=== PATIENT | male | born 1960 | race Caucasian/White ===

== ENCOUNTER → 2017-09-07 11:20 | Outpatient (CLI) | payer MEDICARE ==
[~2017-09-07] VITALS: Ht 182.9 cm; Wt 98.6 kg
--- NOTE | ~2017-09-07 | OP ---
PATIENT NAME: VICKIE DE ANDA MEDICAL RECORD: [id number] :62 LOCATION:D.CAT ADMISSION DATE: SURGEON: CHRISSY LUCAS MD DATE OF OPERATION: 09/07/2017 PROCEDURE: Left heart catheterization, right femoral approach. CATHETERS: A 5-Eritrean sheath, 5/4 left and right Vazquez, 5/4 pig. The procedure was well tolerated. The patient returned to kelly. Sheath removed. ExoSeal device placed. FINDINGS: Left ventriculography in 30-degree MAE view shows anterior apical hypokinesis. Overall, function reduced 30 to 40%. CORONARY ANATOMY: LEFT MAIN: Left main is free of disease. LAD: At the area of previous stenting in the diagonal has about an 80% stenosis. CIRCUMFLEX: Free of disease. RIGHT CORONARY ARTERY: Free of disease. PLAN: Intervention LAD momentarily. DESCRIPTION OF PROCEDURE: A 5-Eritrean sheath was exchanged for a 6-Eritrean sheath. We attempted to place a balloon down. However, secondary to stent struts protruding from the diagonal where we were forced to place a abner wire down. I then placed a balloon down, a 3.0 x 12 Routt, and inflated it to 14 atmospheres to crush the previously placed stent, but into the diagonal to provide adequate lumen for stenting of the LAD. The stent deployed was a 3.5 x 12 Integrity nondrug-eluting stent up to 14 atmospheres, shows excellent resolution of 80% stenosis, no significant residual. SAMARIA flow was 3 throughout the procedure. The patient was previously on Plavix, so heparin was used during the case. Sheath was closed with ExoSeal device. TRANSINT:[id number] Voice Confirmation ID: [id number] DOCUMENT ID: [id number] CHRISSY LUCAS MD at 0816 CC: [id number] DICTATION DATE: 09/07/17 1434 COLLAR TURNER OPERATOR: 09/07/17 1513 DEP CLI 09/07/[address] [place] [address]
--- NOTE | ~2017-09-07 | HEMODYNAMI ---
PATIENT:VICKIE DE ANDA MEDICAL RECORD: [id number] : 62 LOCATION:ROSELINE ADMISSION DATE: 09/07/17 Generatedon:09/07/201714:34 Patient name: VICKIE DE ANDA Patient #: [id number] SSN: : 1960 Date of study: 09/07/2017 Page: Of Hemodynamic Procedure Report Patient Data Patient Demographics Procedure consent was obtained First Name: VICKIE Gender: Male Last Name: JUNE : 1960 Middle Initial: BETTINA Age: 57 year(s) Patient #: [id number] Race: Unknown Additional ID: [id number] Contact details [address]: [address] [place] [address] State: [place] City: [place] Zip code: [address] Past Medical History Allergies: No known allergies Admission Admission Data Admission Date: 09/07/2017 Admission Time: 11:20 Admit Source: Other Lab Results Lab Result Date: 09/07/2017 Lab Result Time: 0:06 Biochemistry Name Units Result Min Max BUN mg/dl 16 --(---*)-- 7 18 Creatinine mg/dl 0.9 --(-*--)-- 0.6 1.3 CBC Name Units Result Min Max Hematocrit % 54.5 --(----)*- 42 54 Hemoglobin g/dl 19.7 --(----)-* 13.5 17.5 Procedure Procedure Types Cath Procedure Diagnostic Procedure LHC LH w/Coronaries Sedation Charges Moderate Sedation up to 30 minutes PCI Procedure Coronary Stent Coronary Stent Initial Procedure Description Procedure Date Procedure Date: 09/07/2017 Procedure Start Time: 13:57 Procedure End Time: 14:29 Procedure Staff Name Function Skip Nelson MD Performing Physician Ezra Gongora RT Monitor Lizeth Jimenez RT Scrub Bc Botello RN Nurse Procedure Data Cath Procedure Fluoroscopy Diagnostic fluoroscopy Total fluoroscopy Time: time: 10.7 min 10.7 min Diagnostic fluoroscopy Total fluoroscopy dose: dose: 1040 mGy 1040 mGy Contrast Material Contrast Material Type Amount (ml) Isovue 370 114 Entry Location Entry Primary Successful Side Size Upsize Upsize Entry Closure Succes sful Closure Location (Fr) 1 (Fr) 2 (Fr) Remarks Device Remarks Femoral Right 5 Fr 6 Fr Exoseal artery Short Estimated blood loss: 10 ml Diagnostic catheters Device Type Used For End Catheter Placement MULTIPACK JL 4.0 5Fr Procedure catheter MULTIPACK 3DRC 5Fr Procedure catheter MULTIPACK Pigtail 5 Fr Procedure catheter Procedure Complications No complications Procedure Medications Medication Administration Route Dosage 0.9% NaCl I.V. 100 ml/hr Oxygen etCO2 Nasal cannula 2 l/min Heparin Flush Bag added to field 2 bags (1000units/500ml NS) Lidocaine 2% added to field 20 Versed I.V. 1 mg Fentanyl I.V. 50 mcg Heparin Bolus I.V. 5000 units Plavix P.O. 300 mg Hemodynamics Rest HGB: 19.7 (g/dl) Heart Rate: 75 (bpm) Pressure Samples Time Site Value (mmHg) Purpose Heart Use Rate(bpm) 14:02 LV 98/-12,7 Snapshot 76 Gradients Valve Time Site Site Mean SEP/DFP Peak To Heart Use 1 2 (mmHg) (sec/min) Peak Rate (mmHg) (bpm) Aortic 14:03 LV AO 79 Snapshots Pre Cath Intra NCS Post Cath Vital Signs Time Heart Resp SPO2 etCO2 NIBP Rhythm Pain Sedation Rate (ipm) (%) (mmHg) (mmHg) Status Level (bpm) 13:36:35 75 13 0 111/70(88) NSR 0 (11) 10(A) , No pain 13:41:05 76 14 29.1 93/68(85) NSR 0 (11) 10(A) , No pain 13:46:04 76 12 93 32.1 93/65(80) NSR 0 (11) 10(A) , No pain 13:50:32 78 12 92 32.1 93/71(83) NSR 0 (11) 10(A) , No pain 13:55:01 77 14 92 32.1 102/70(86) NSR 0 (11) 10(A) , No pain 13:59:33 73 12 93 32.8 100/65(80) NSR 0 (11) 9(A) , No pain 14:04:06 77 15 94 34.3 93/64(80) NSR 0 (11) 9(A) , No pain 14:09:02 75 11 94 34.3 93/67(79) NSR 0 (11) 9(A) , No pain 14:13:37 87 12 93 14.9 84/54(66) NSR 0 (11) 9(A) , No pain 14:18:40 89 14 95 11.9 75/58(66) NSR 0 (11) 10(A) , No pain 14:22:03 91 14 96 29.1 77/57(0) NSR 0 (11) 10(A) , No pain 14:30:21 85 18 9.7 101/67(83) NSR 0 (11) 10(A) , No pain Medications Time Medication Route Dose Verified Delivered Reason Notes Effectiveness by by 13:39:56 0.9% NaCl I.V. 100 Bc Bc Per physician ml/hr Ayan Botello RN RN 13:40:05 Oxygen etCO2 2 Bc Bc Per physician Nasal l/min Ayan Botello cannula RN RN 13:40:16 Heparin Flush added 2 Bc Bc used for Bag to bags Ayan Botello procedure (1000units/500ml field HOLLY RN NS) 13:40:26 Lidocaine 2% added 20ml Bc Bc for local to vial Ayan Botello anesthetic field HOLLY RN 13:53:43 Versed I.V. 1 mg Bc Bc for sedation Ayan Botello RN RN 13:53:52 Fentanyl I.V. 50 Bc Bc for sedation mcg Ayan Botello RN RN 14:05:30 Heparin Bolus I.V. 5000 Bc Bc for units Ayan Botello anticoagulation RN RN 14:27:56 Plavix P.O. 300 Bc Bc for mg Ayan Botello antiplatelet RN RN therapy Procedure Log Time Note 13:15:14 Bc Botello RN sent for patient. Start room use. 13:22:57 Informed consent obtained and on chart 13:23:00 Admit Source: Other 13:23:13 Diagnostic Cath status Elective 13:23:19 Time tracking: Regular hours (M-F 7:00 - 5:00) 13:23:22 Plan of Care:Hemodynamics will remain stable., Cardiac rhythm will remain stable., Comfort level will be maintained., Respiratory function will remain adequate., Patient/ family verbilizes understanding of procedure., Procedure tolerated without complication., Recovers from procedure without complications.. 13:23:26 Patient received from Pre/Post Procedure Room to CCL 1 Alert and oriented. Tansferred to table in Supine position. 13:23:27 Warm blankets applied, and suraj hugger turned on for patient comfort. 13:23:27 Correct patient and procedure confirmed by team. 13:23:28 ECG and BP/O2 sat monitors applied to patient. 13:23:35 H&P Date Dictated: 09/06/2017 Within 30 days and on chart., H&P Addendum completed by physician on day of procedure. (MUST COMPLETE FOR ALL OUTPATIENTS). 13:23:36 Pre-procedure instructions explained to patient. 13:23:36 Pre-op teaching completed and patient verbalized understanding. 13:23:37 Family in waiting room. 13:23:38 Patient NPO since Midnight. 13:28:49 Vital chart was started 13:28:49 Full Disclosure recording started 13:36:12 Baseline sample Acquired. 13:36:17 Rhythm: sinus rhythm 13:36:30 Patient allergic to No known allergies 13:36:32 Is the patient allergic to Iodine/contrast media? No. 13:36:33 Is patient on blood thinner?Yes 13:36:35 ACC The patient was administered the following blood thiners within the last 24 hours: ACCPlavix 13:36:38 Patient diabetic? Yes. 13:36:40 Previous problem with sedation/anesthesia? No ? 13:36:46 Snore? Yes 13:36:47 Sleep apnea? No 13:36:48 Deviated septum? No 13:36:49 Opens mouth fully? Yes 13:36:50 Sticks out tongue? Yes 13:36:52 Airway obstruction? Yes copd 13:36:54 Dentures? No ? 13:36:57 Pre procedure: right dorsailis pedis pulse 2+ Normal; easily identifiable; not easily obliterated 13:37:00 Patient pain scale 0/10 ?. 13:37:01 Modified Daniel's test Ulnar > 7 seconds. 13:37:43 If diabetic: On Metformin? No 13:38:26 IV patent on arrival in left forearm with 0.9% NaCl at [facility]. 13:39:52 Lab Result : BUN 16 mg/dl 13:39:52 Lab Result : Creatinine 0.9 mg/dl 13:39:52 Lab Result : Hemoglobin 19.7 g/dl 13:39:52 Lab Result : Hematocrit 54.5 % 13:39:56 0.9% NaCl 100 ml/hr I.V. was administered by Bc Botello RN; Per physician; 13:39:56 Lab results completed and on chart. 13:40:05 Oxygen 2 l/min etCO2 Nasal cannula was administered by Bc Botello RN; Per physician; 13:40:16 Heparin Flush Bag (1000units/500ml NS) 2 bags added to field was administered by Bc Botello RN; used for procedure; 13:40:26 Lidocaine 2% 20ml vial added to field was administered by Bc Botello RN; for local anesthetic; 13:40:49 Right groin area was prepped with chlora-prep and draped in sterile fashion 13:40:51 Alarms reviewed by R. N. 13:40:52 Sharps counted by scrub and verified by R.N. 13:40:54 Use device set Femoral Dx 13:40:54 ACIST Syringe (60084) opened to sterile field. 13:40:55 Bag Decanter (2002S) opened to sterile field. 13:40:57 ACIST Hand Control (97426) opened to sterile field. 13:40:58 ACIST Manifold (10671) opened to sterile field. 13:40:59 Tegaderm 4 x 4 (1626W) opened to sterile field. 13:41:00 Medline Cath Pack ([id number]) opened to sterile field. 13:41:01 DIAGNOSTIC WIRE .035 260cm J wire (955741) opened to sterile field. 13:41:01 DIAGNOSTIC Multipack 5Fr catheter set (OD3658) opened to sterile field. 13:41:04 SHEATH Prelude 5Fr 0.035 (QKM-3R-65-035) opened to sterile field. 13:44:58 Zero performed for pressure channel P1 13:53:18 Physician arrived 13:53:19 --------ALL STOP TIME OUT------ 13:53:20 Final Timeout: patient, procedure, and site verified with staff and physician. All members of the team are in agreement. 13:53:23 Right groin site verified by team. 13:53:26 Physical assessment completed. ASA score P 2 - A patient with mild systemic disease as per Skip Nelson MD. 13:53:28 Sedation plan: IV Moderate Sedation Medication:Versed, Fentanyl 13:53:43 Versed 1 mg I.V. was administered by Bc Botello RN; for sedation; 13:53:52 Fentanyl 50 mcg I.V. was administered by Bc Botello RN; for sedation; 13:57:40 Procedure started. 13:57:44 Local anesthetic to right femoral artery with Lidocaine 2% by Skip Nelson MD.INITIAL ACCESS ONLY 13:58:08 A 5 Fr sheath was inserted into the Right Femoral artery 13:58:14 A MULTIPACK JL 4.0 5Fr catheter was advanced over the wire and used for Procedure. 13:59:03 LCA angiography performed. 14:00:35 Catheter exchanged over wire. 14:00:42 A MULTIPACK 3DRC 5Fr catheter was advanced over the wire and used for Procedure. 14:01:13 RCA angiography performed. 14:01:22 Catheter exchanged over wire. 14:01:27 A MULTIPACK Pigtail 5 Fr catheter was advanced over the wire and used for Procedure. 14:02:21 SHEATH Prelude 6Fr 0.035 (NDA-1Z-58-035) opened to sterile field. 14:02:26 INFLATOR Merit BasixCompak (TX6938) opened to sterile field. 14:02:33 WHISPER 300cm guide wire ([id number]) opened to sterile field. 14:02:39 LV hemodynamics recorded. 14:02:48 LV gram done using MAE 14:02:50 Injector settings: Ml/sec: 10, Volume: 20, 14:03:04 EF : 40 % 14:03:14 Catheter removed. 14:03:21 Sheath upsized to a 6 Fr Short. 14:04:51 GUIDE 6FR XBLAD 4.0 catheter ([id number]) opened to sterile field. 14:04:59 6 Fr xblad 4 guide catheter was inserted over the wire 14:05:30 Heparin Bolus 5000 units I.V. was administered by Bc Botello RN; for anticoagulation; 14::43 whisper wire advanced. 14:08:11 Wire advanced across lesion. 14:12:27 COUGAR 300cm guide wire ([id number]) opened to sterile field. 14:12:42 cougar wire advanced as abner wire. 14:14:13 The INTEGRITY OTW 3.5 X 12 stent ([id number]) was advanced then removed because of failure to cross lesion 14:18:12 Inflate balloon Inflation number: 1 A EMERGE OTW 3.0 x 12 balloon ([id number]) was prepped and advanced across the Prox LAD, then inflated to 14 ARTEMIO for 0:30 (min:sec). 14:18:48 whisper wire removed. 14:18:49 Balloon removed over the wire. 14:18:59 CHOICE PT Extra Support J 300cm guide wire ([id number]) opened to sterile field. 14:19:52 choice pt es wire advanced. 14:19:53 Wire advanced across lesion. 14:22:51 abner wire removed 14:23:24 Place stent Inflation Number: 2 A INTEGRITY OTW 3.5 X 12 stent ([id number]) was prepped and advanced across the Prox LAD. The stent was deployed at 14 ARTEMIO for 0:45 (min:sec). 14:24:10 Stent catheter was removed intact over wire. 14:24:11 Guide catheter removed. 14:24:17 EXOSEAL 6Fr (EX600) opened to sterile field. 14:24:30 Sheath removed intact; hemostasis achieved with Exoseal to the Right Femoral artery. 14:24:31 Procedure ended.(Physican Out) 14:25:25 Fluoroscopy time 10.70 minutes. 14:25:30 Flurop Dose total: 1040 14:25:30 Fluoroscopy dose: 1040 mGy 14:25:34 Contrast amount:Isovue 370 114ml. 14:25:35 Sharps counted by scrub and verified by R.N. 14:25:37 Insertion/operative site no bleeding no hematoma. 14:25:39 Post-op/insertion site Right Femoral artery dressed using a 4 x 4 and Tegaderm. 14:25:53 Post right femoral artery:stable, soft, clean and dry 14:25:54 Post Procedure Pulses reassessed and unchanged 14:25:56 Post-procedure physical assessment completed. ASA score P 2 - A patient with mild systemic disease as per Skip Nelson MD. 14:25:59 Post procedure rhythm: unchanged. 14:26:01 Estimated blood loss: 10 ml 14:26:03 Post procedure instruction explained to patient.Patient verbalizes understanding. 14:26:03 Patient needs reinforcement of post procedure teaching. 14:26:15 Procedure type changed to Cath procedure, Diagnostic procedure, LHC, LHC w/Coronaries, Sedation Charges, Moderate Sedation up to 30 minutes, PCI procedure, Coronary Stent, Coronary Stent Initial 14::28 Procedure and supply charges have been captured, reviewed, submitted and are correct. 14:27:32 Procedure Complication : No complications 14::56 Plavix 300 mg P.O. was administered by Bc Botello RN; for antiplatelet therapy; 14::58 Vital chart was stopped 14::58 See physician's report for complete and final results. 14:29:01 Report given to Pre/Post Procedure Room. 14:29:02 Patient transfered to Pre/Post Procedure Room with Stretcher. 14:29:04 Procedure ended. 14:29:04 Full Disclosure recording stopped 14:29:08 End room use (Document Last) Intervention Summary Intervention Notes Time ActionType Lesion and Equipment Action# Pressure Duration Attributes Used 14:14:13 Discard INTEGRITY Stent OTW 3.5 X 12 stent ([id number]) 14:18:12 Inflate Prox LAD EMERGE OTW 1 14 00:30 balloon 3.0 x 12 balloon ([id number]) 14:23:24 Place stent Prox LAD INTEGRITY 2 14 00:45 OTW 3.5 X 12 stent ([id number]) Device Usage Item Name Manufacture Quantity Catalog Number Hospital Part Current Minimal Lot# / Charge Number Stock Stock Serial# Code ACIST Syringe Acist 1 45407 928668 750542 536391 20 (93809) [employer] Bag Decanter Microtek 1 2001S 546020 62670 504406 5 () Medical Inc. ACIST Hand Acist 1 01876 670342 662623 737825 5 Control (57025) [employer] Inc ACIST Manifold Acist 1 52106 246160 689350 532585 5 (83114) [employer] Inc Tegaderm 4 x 4 3M 1 1626W 467605 332058 072681 5 (1626W) Medline Cath Cardinal 1 [id number] 812866 90543 973889 5 Spotjournal ([id number]) DIAGNOSTIC WIRE St Gino 1 536386 690574 493240 488176 30 .035 260cm J wire (482775) DIAGNOSTIC Cardinal 1 TE1939 852479 12431 316849 30 Multipack 5Fr Health catheter set ([id number]) SHEATH Prelude Merit 1 GAP-7L-42-035 959471 312733 103481 5 5Fr 0.035 Medical (FCT-8X-37-035) MULTIPACK JL Cardinal 1 738229 5 4.0 5Fr Health catheter MULTIPACK 3DRC Cardinal 1 342023 5 5Fr catheter Health MULTIPACK Cardinal 1 423747 5 Pigtail 5 Fr Health catheter SHEATH Prelude Merit 1 HOC-6W-97-35 683515 2780594 578244 5 6Fr 0.035 Medical (CMB-4W-38-035) INFLATOR Merit Merit 1 PW8373 822510 205968 831307 15 [facility] (QO7490) WHISPER 300cm Yang 1 [id number] 909242 892743 360505 5 guide wire Vascular ([id number]) GUIDE 6FR XBLAD Cardinal 1 [id number] 944585 106519 773863 3 4.0 catheter Health ([id number]) COUGAR 300cm Yang 1 [id number] 517490 788833 083765 1 guide wire Vascular ([id number]) INTEGRITY OTW Medtronic 1 [id number] 727257 998702 9 [id number] 3.5 X 12 stent ([id number]) EMERGE OTW 3.0 [place] 1 [id number] 558498 518700 149534 5 [id number] x 12 balloon Scientific ([id number]) CHOICE PT Extra [place] 1 [id number] 376901 580881 198338 5 Support J 300cm Scientific guide wire ([id number]) EXOSEAL 6Fr Cardinal 1 EX600 390574 597130 452993 10 (EX600) Health Signature Audit [place] Stage Time Signature Unsigned Intra-Procedure 09/07/2017 Ezra Gongora 2:34:22 PM RT(R) Signatures Monitor : Ezra Gongora RT Signature : Date : Time : [place] [address] [place] [address]
[~2017-09-07 11:20] MED LIST: LANTUS SOL100 UNIT/1 SC; LEVOTHYROXINE200 MCG PO; LIPITOR80 MG PO; LISINOPRIL5 MG PO; NEURONTIN 400400 MG PO; NORCO 7.5/325 T1 TA1 PO; NOVOLOG100 U/M1 SC; PLAVIX75 MG PO; PROZAC20 MG PO
[2017-09-07 12:04] VITALS: BP 123/79; Ht 182.9 cm; Wt 98.6 kg
[2017-09-07 12:12] LABS: BASOPHILS 1.1 % (0-2); EOSINOPHILS 1.8 % (0-7); HEMATOCRIT 54.5 % (42.0-54.0); HEMOGLOBIN 19.7 g/dL (13.5-17.5); IMMATURE GRANULOCYTES 0.6 % (0-5); LYMPHOCYTES 24.8 % (15-50); MCH 30.9 pg (26.0-34.0); MCHC 36.1 g/dL (31.0-37.0); MCV 85.6 fL (80.0-100.0); MONOCYTES 6.3 % (2-11); NEUTROPHILS 65.4 % (40-80); PLATELET COUNT 132 10x3/uL (130-400); RBC 6.37 10x6/uL (4.20-6.10); WBC 6.2 10x3/uL (4.8-10.8)
[2017-09-07 12:50] LABS: CALC OSMOLALITY 280 mosm/kg (275-300); CARBON DIOXIDE 26.3 mmol/L (21.0-32.0); CHLORIDE - SERUM 100 mmol/L (98-107); CREATININE - SERUM 0.9 mg/dL (0.6-1.3); GLUCOSE 198 mg/dL (74-106); POTASSIUM - SERUM 4.6 mmol/L (3.5-5.1); SODIUM 137 mmol/L (136-145); UREA NITROGEN 16 mg/dL (7-18); eGFR NON AFRICAN AMERICAN > 90 mL/min (90-120)
== END | disposition home or self-care (01) ==
LOC: D.CATH 11:20
PROVIDERS: Internal Medicine Interventional Cardiology
DX: I25.119 Atherosclerotic heart disease of native coronary artery with unspecified angina pectoris (principal); E78.5 Hyperlipidemia, unspecified; E11.9 Type 2 diabetes mellitus without complications; Z01.812 Encounter for preprocedural laboratory examination